=== PATIENT | male | born 1935 | race Caucasian/White ===

== ENCOUNTER 2022-01-09 17:51 | Emergency (ER) | payer OTHER, MEDICARE ==
[~2022-01-09 17:51] MED LIST: ACETAMINOPHEN325 MG PO; ALDACTONE25 MG PO; AMBIEN10 MG PO; AMBIEN5 MG PO; ASPIRIN CHEWABL81 MG PO; ASPIRIN325 MG PO; DESENEX85 GM TOP; FEOSOL325 MG PO; FLEXERIL10 MG PO; FLONASE ALLER15.8 ML; GLUCOTROL5 MG PO; LASIX20 MG PO; LAXACIN TABLET1 EACH PO; LAXATIVE OF CHOICE PO; LOPRESSOR50 MG PO; LORTAB 7.5-3251 EACH PO; MICRONASE PO; MULTI-VITAMIN1 EACH PO; NEURONTIN100 MG PO; NORCO 5-325 TA1 EACH PO; NORVASC10 MG PO; PERCOCET 5-3251 EACH PO; PERCOCET 7.5/321 TAB PO; PRILOSEC20 MG PO; PRINIVIL20 MG PO; SALINE EYE DROPS OU; SYMBICORT 16010.2 GM INH; TRAMADOL HCL50 MG PO; ULTRAM50 MG PO; VENTOLIN (2.5 MG/3 M INH; VITAMIN D1000 UNI1 PO; ZESTRIL40 MG PO; ZOCOR10 MG PO; ZOCOR20 MG PO; ZYRTEC10 M3 PO
== END 2022-01-09 21:01 | disposition home or self-care (01) ==
LOC: FER 17:51
DX: S01.01XA Laceration without foreign body of scalp, initial encounter (principal); I10 Essential (primary) hypertension; Z79.899 Other long term (current) drug therapy; W01.0XXA Fall on same level from slipping, tripping and stumbling without subsequent striking against object, initial encounter; Y92.009 Unspecified place in unspecified non-institutional (private) residence as the place of occurrence of the external cause
CPT/HCPCS: 70450